=== PATIENT | male | born 1970 | race Caucasian/White ===

== ENCOUNTER → 2023-12-04 06:18 | Day surgery (SDC) | payer BC, SELFPAY | LOC: GI 06:18 | PROVIDERS: ATTENDING PHYSICIAN Internal Medicine Gastroenterology | DX: Z12.11 Encounter for screening for malignant neoplasm of colon (principal); K64.8 Other hemorrhoids; K62.89 Other specified diseases of anus and rectum; D12.2 Benign neoplasm of ascending colon | CPT/HCPCS: 45380; 88305 ==